=== PATIENT | male | born 1960 | race Caucasian/White ===

== ENCOUNTER 2019-05-06 08:30 | Day surgery (SDC) | payer OTHER ==
[~2019-05-06] VITALS: Ht 172.7 cm; Wt 111.9 kg
[~2019-05-06 08:30] MED LIST: IBUPROFEN; LIPITOR; LOSARTAN; OMEPRAZOLE; PREDNISONE
[2019-05-06 09:01] VITALS: Ht 172.7 cm; Wt 111.9 kg
[2019-05-06 09:49] VITALS: BP 142/83; PULSE 70; RESP 17
[2019-05-06] MEDS ORDERED: PROPOFOL 20 ML ONE (09:51)
[2019-05-06] MEDS ORDERED: FENTAnyl 50 MCG/ML VIAL ONE (09:54)
[2019-05-06 10:35] VITALS: BP 121/73; PULSE 66; RESP 20
[2019-05-06 10:45] VITALS: BP 126/72; PULSE 66; RESP 19
== END 2019-05-06 14:26 | disposition home or self-care (01) ==
LOC: GIL 08:30
PROVIDERS: ATTEND Internal Medicine Gastroenterology
DX: R19.4 Change in bowel habit (principal); D12.5 Benign neoplasm of sigmoid colon; K64.8 Other hemorrhoids; I10 Essential (primary) hypertension
CPT/HCPCS: 45380; 88305; Z7610; J3010